=== PATIENT | male | born 1955 | race Caucasian/White ===

== ENCOUNTER 2021-07-07 08:59 | Emergency (ER) | payer BC ==
[~2021-07-07] VITALS: Ht 170.2 cm; Wt 70.3 kg
[2021-07-07] MEDS ORDERED: ONDANSETRON 4 MG/2 ML VIAL IV ONE (09:15)
[2021-07-07] MEDS ORDERED: IV NORMAL SALINE 500 ML BAG IV ONE (09:15)
[2021-07-07] MEDS ORDERED: ONDANSETRON 4 MG/2 ML VIAL ONE (09:16)
[2021-07-07 09:42] LABS: HEMATOCRIT 43.5 % (36.7-47.1); MEAN CORPUSCULAR HEMOGLOBIN 31.6 uug (23.8-33.4); MEAN CORPUSCULAR VOLUME 91.7 fL (73.0-96.2); PLATELET COUNT (AUTO) 177 K/uL (152-348)
[2021-07-07 09:47] LABS: CREATININE 0.9 mg/dL (0.6-1.3); POTASSIUM 3.6 mmol/L (3.5-5.1)
[2021-07-07 09:59] LABS: BILIRUBIN,TOTAL 0.6 mg/dL (0.2-1.0); TOTAL PROTEIN, SERUM 6.6 g/dL (6.4-8.2)
[2021-07-07] MEDS ORDERED: MECLIZINE HCL 25 MG TABLET PO ONE (10:15)
[2021-07-07] MEDS ORDERED: MECLIZINE HCL 25 MG TABLET ONE (10:25)
[2021-07-07] MEDS ORDERED: METOCLOPRAMIDE HCL 10 MG/2 ML VIAL ONE (11:30)
[2021-07-07] MEDS ORDERED: METOCLOPRAMIDE HCL 10 MG/2 ML VIAL IV ONE (11:30)
[2021-07-07] MEDS ORDERED: MECL-225 PO (11:31)
--- NOTE | 2021-07-07 11:58 | NUR ---
Removed IV intact, site benign, bandaged. Gave pt RX and d/c instructions, pt verbalized understanding.
[2021-07-07 12:07] VITALS: BP 127/74
== END 2021-07-07 12:08 | disposition home or self-care (01) ==
LOC: ER 08:59
DX: R11.2 Nausea with vomiting, unspecified (principal); R42 Dizziness and giddiness; Z90.49 Acquired absence of other specified parts of digestive tract
CPT/HCPCS: 36415; 80053; 84484; 85025; 93005; 96361; 96374; 96375; 99284; J2405; J2765; 70030-TC; A4663; J7030; J8597